=== PATIENT | male | born 1955 | race Two or more races ===

== ENCOUNTER 2025-01-11 12:35 | Emergency (ER) | payer OTHER ==
[~2025-01-11] VITALS: Ht 175.3 cm; Wt 89.8 kg
[2025-01-11 12:49] VITALS: BP 96/52; PULSE 102; RESP 18; TEMP 97.4; O2SAT 100
--- NOTE | 2025-01-11 14:18 | ELECTROCARDIOGRAPH REPORT ---
[facility] Test Date: 2025-01-11 Test Time: 12:44:07 Pat Name: ANATOLIY ESPINAL Department: EMERGENCY ROOM [id number] Room: Gender: M [employer]isher: PM : 1955 Requested By: JORGE ELLIOTT Order Number: [id number] Reading MD: Measurements Intervals Tad Rate: 108 P: 75 MD: 172 QRS: -18 QRSD: 119 T: 89 QT: 357 QTc: 479 Interpretive Statements Sinus tachycardia Incomplete left bundle branch block LVH with secondary repolarization abnormality Anterior Q waves, possibly due to LVH Baseline wander in lead(s) V6 Please click the below link to view image of tracing.
[2025-01-11 14:22] LABS: MEAN PLATELET VOLUME 9.8 FL (7.4-10.4); RED CELL DISTRIBUTION WIDTH 14.1 % (11.5-14.5)
[2025-01-11 14:39] LABS: CREATININE 1.86 MG/DL (0.60-1.10); PRO BRAIN NATRIURETIC PEPTIDE 49 PG/ML (0-125); TOTAL CARBON DIOXIDE 23.4 MMOL/L (24-32); eCRCL 37 ML/MIN; eGFR 36 ML/MIN
--- NOTE | 2025-01-11 15:01 | RADIOLOGY REPORT ---
EXAM: DI CHEST,SINGLE VIEW CLINICAL HISTORY: CP TECHNIQUE: Single AP view of the chest WID: COMPARISON: None FINDINGS: Lines and tubes: None Chest: The heart size and pulmonary vasculature is within normal limits. No pleural effusion, pneumothorax, or consolidation. The osseous structures are grossly intact. IMPRESSION: 1. No acute cardiopulmonary abnormality.
--- NOTE | 2025-01-11 15:30 | Physician Documentation ---
History of Present Illness ~ Chief Complaint: Chest Pain Stated Complaint: HPI This is a 69-year-old male with a history of cardiac stent who presents after an episode of chest pain with accompanying dizziness and shortness of breath, patient reports he took a dose of nitroglycerin with chest pain decreasing. Medication Reconciliation Allergies: Coded Allergies: No Known Allergies (Unverified , 01/11/25) Past Medical History Past Medical History: No Pertinent History Smoking Status: Never smoker Review of Systems ROS As stated above in the HPI, otherwise all systems are reviewed and negative. Physical Exam Vital Signs: Temperature: 97.4, Heart Rate: 102, Respiratory Rate: 18, BP: 96/52, Pulse Oximetry: 100, Weight: 89.800 Oxygen Flow Rate: 0 Physical Exam VITALS: Reviewed and as above. GENERAL: Alert, nontoxic appearing, no apparent distress. RESPIRATORY: No increased work of breathing, no respiratory distress, speaking in full clear sentences Progress Results/Orders Results/Orders Vital Signs 01/11/25 12:49 Temp 97.4 Pulse 102 Resp 18 B/P (MAP) 96/52 Pulse Ox 100 O2 Flow Rate 0 Laboratory Tests Test 01/11/25 12:50 01/11/25 14:19 White Blood Count 10.1 Red Blood Count 3.14 L Hemoglobin 9.1 L Hematocrit 26.6 L Mean Corpuscular Volume 84.7 Mean Corpuscular Hemoglobin 29.0 Mean Corpuscular Hemoglobin Concent 34.2 Red Cell Distribution Width 14.1 Platelet Count 244 Mean Platelet Volume 9.8 Neutrophils (%) (Auto) 70.4 Lymphocytes (%) (Auto) 23.3 Monocytes (%) (Auto) 5.1 Eosinophils (%) (Auto) 0.9 Basophils (%) (Auto) 0.3 Neutrophils # (Auto) 7.1 Lymphocytes # (Auto) 2.4 Monocytes # (Auto) 0.5 Eosinophils # (Auto) 0.1 Basophils # (Auto) 0.0 CBC Comment Sodium Level 136 Potassium Level 4.9 Chloride Level 104 Carbon Dioxide Level 23.4 L Anion Gap 9 Blood Urea Nitrogen 42 H Creatinine 1.86 H Estimated GFR/1.73 m2 36 BUN/Creatinine Ratio 22.6 H Glucose Level 202 H Calcium Level 8.5 Troponin I High Sensitivity 10 Pro-B-Type Natriuretic Peptide 49 Albumin 3.5 Chemistry Comments Glucometer 169 H EKG/XRAY/CT/US/VASC/MRI EKG : Additional Comment EKG at 1244 Interpreted by myself as: Sinus tachycardia at a rate of 108, left bundle branch block, nonspecific ST-T changes Heart Score: Heart Score Response (Comments) Value History Highly Suspicious 2 EKG Normal 0 Age >65 2 Risk Factors >3 or Hx ASHD 2 Troponin Normal limit 0 Total 6 Medical Decision Making Additional information obtaine: N/A Findings This well-appearing 69-year-old male with a history of cardiac stent presented episode of chest pain that decreased after taking home nitroglycerin, EKG did not demonstrate evidence of acute STEMI, MSE performed in triage and patient returned to ED lobby by nursing staff to await available ED room, ACS protocol was initiated and lab work obtained. Patient appears to have eloped from lobby. Heart Score: 6 Differential Dx:Considerations: Include: angina, aortic dissection, chest wall pain, cholelithiasis, CHF, costochondritis, esophageal reflux/spasm, gastritis, herpes zoster, myocardial infarction, pericarditis, pleuritis, pancreatitis, pneumonia, pneumothorax, pulmonary embolus Departure Disposition: 07 LEFT AWOL/ELOPED Impression: Primary Impression: Chest pain Qualified Codes: R07.9 - Chest pain, unspecified Condition: Stable Referrals: NO PRIMARY CARE PROVIDER (PCP) Signature Scribe Signature: No scribe Attestation: The note accurately reflects work and decisions made by me.DINAH Johns 01/12/25 01:10 FILIPE LAINEZ Jan 11, 2025 15:30
== END 2025-01-11 16:16 | disposition left against medical advice (07) ==
LOC: ER 12:37
DX: R07.9 Chest pain, unspecified (principal); Z95.5 Presence of coronary angioplasty implant and graft
CPT/HCPCS: 36415; 71045; 80048; 82948; 83880; 84484; 85025; 93005; 99285